=== PATIENT | female | born 1945 | race Caucasian/White ===

== ENCOUNTER 2017-12-27 13:31 | Outpatient (CLI) | payer MEDICARE, OTHER ==
--- NOTE | 2017-12-27 14:01 | ULT ---
LEFT LOWER EXTREMITY VENOUS ULTRASOUND: Comparison: Left leg pain, intermittent. Technique: Multiplanar grayscale and color doppler images were obtained in a left lower extremity roselyn ous ultrasound. Spectral analysis of the doppler waveforms were performed. FINDINGS: The left common femoral vein, profunda femoral vein, superficial femoral vein, and popliteal vein hav e a normal appearance. These vessels demonstrate normal compression, flow, and augmentation. The post erior tibial vein and greater saphenous vein are also patent. IMPRESSION: No evidence of left lower extremity DVT. POS: [facility]
== END 2017-12-27 13:32 | disposition home or self-care (01) ==
LOC: ULT 13:31
PROVIDERS: ATTEND Family Medicine
DX: M79.605 Pain in left leg (principal); R60.0 Localized edema

== ENCOUNTER 2018-04-05 23:10 | Emergency (ER) | payer MEDICARE, OTHER ==
[2018-04-05 23:52] LABS: #Eosinphils 0.1 thou/uL (0.0-0.7); #Lymphocytes 2.1 thou/uL (1.20-3.40); #Monocytes 0.7 thou/uL (0.11-0.59); #Neutrophils 3.3 thou/uL (1.40-6.50); %Basophils 0.7 % (0.0-1.0); %Eosinophils 1.4 % (0.0-10.0); %Lymphocytes 34.1 % (21.0-51.0); %Neutrophils 52.8 % (42.0-75.0); Hemoglobin 14.2 g/dL (12.0-16.0); Mean Corpuscular HGB CONC 33.8 g/dL (32.0-36.0); Mean Corpuscular Hemoglobin 28.6 pg (27.0-31.0); Mean Corpuscular Volume 84.7 fl (81.0-99.0); Mean Platelet Volume 8.4 fL (7.4-10.4); Platelet Count 193 thou/uL (130-400); RBC Distribution Width 12.3 % (11.5-14.5); Red Blood Cell (RBC) Count 4.95 mill/uL (4.20-5.40); White Blood Cell (WBC) Count 6.2 thou/uL (4.8-10.8)
[2018-04-06 00:14] LABS: ALT (SGPT) 18 U/L (8-55); AST (SGOT) 17 U/L (5-34); Albumin 4.3 g/dL (3.4-4.8); Alkaline Phosphatase 84 U/L (40-150); Anion Gap 13 mmol/L (10-20); BUN (Urea Nitrogen) 27 mg/dL (9.8-20.1); Bilirubin, Total 0.5 mg/dL (0.2-1.2); Calc. Creatinine Clearance 0 mL/min (70-130); Calcium 10.1 mg/dL (7.8-10.44); Carbon Dioxide 28 mmol/L (23-31); Chloride 103 mmol/L (98-107); Estimated GFR-MDRD 48; Glucose 113 mg/dL (83-110); Potassium 3.4 mmol/L (3.5-5.1); Protein, Total 7.3 g/dL (6.0-8.3); Sodium 141 mmol/L (136-145)
[2018-04-06 00:56] LABS: CKMB 2.4 ng/mL (0-6.6); Troponin I Less than 0.010 ng/mL (< 0.028)
--- NOTE | 2018-04-06 08:05 | RAD ---
PORTABLE AP CHEST XRAY: DATE: 04/06/18. HISTORY: Right-sided chest pain for 2 hours. COMPARISON: 08/31/13. FINDINGS: Cardiac silhouette and pulmonary vasculature are within normal limits. The lungs are clear. Vascula r calcification of the thoracic aorta. There is right convex curvature of the thoracic spine. There has been no other interval change from the prior exam. IMPRESSION: No acute cardiopulmonary process. POS: [facility]
== END 2018-04-06 01:58 | disposition home or self-care (01) ==
LOC: ERS 23:10
DX: R07.2 Precordial pain (principal); I10 Essential (primary) hypertension; E11.9 Type 2 diabetes mellitus without complications; Z79.84 Long term (current) use of oral hypoglycemic drugs; Z79.899 Other long term (current) drug therapy
CPT/HCPCS: 36415; 71045; 80053; 82553; 84484; 85025; 93005

== ENCOUNTER 2019-03-04 20:13 | Emergency (ER) | payer MEDICARE, OTHER ==
[2019-03-04 21:17] LABS: #Basophils 0.1 thou/uL (0.0-0.2); #Eosinphils 0.1 thou/uL (0.0-0.7); #Lymphocytes 2.8 thou/uL (1.20-3.40); #Monocytes 0.8 thou/uL (0.11-0.59); #Neutrophils 3.6 thou/uL (1.40-6.50); %Basophils 0.8 % (0.0-1.0); %Eosinophils 1.1 % (0.0-10.0); %Lymphocytes 37.8 % (21.0-51.0); %Monocytes 11.4 % (0.0-10.0); Hemoglobin 14.2 g/dL (12.0-16.0); Mean Corpuscular HGB CONC 32.3 g/dL (32.0-36.0); Mean Corpuscular Hemoglobin 28.3 pg (27.0-31.0); Mean Corpuscular Volume 87.4 fL (78.0-98.0); Mean Platelet Volume 8.7 fL (7.4-10.4); Platelet Count 203 thou/uL (130-400); RBC Distribution Width 12.1 % (11.5-14.5); Red Blood Cell (RBC) Count 5.04 mill/uL (4.20-5.40); White Blood Cell (WBC) Count 7.3 thou/uL (4.8-10.8)
[2019-03-04] MEDS ORDERED: Ondansetron PF 4 MG/2 ML Vial ONE (21:32)
[2019-03-04] MEDS ORDERED: Lorazepam 2 MG/ML VIAL ONE (21:32)
[2019-03-04 21:43] LABS: ALT (SGPT) 21 U/L (8-55); AST (SGOT) 32 U/L (5-34); Albumin 4.6 g/dL (3.4-4.8); Alkaline Phosphatase 57 U/L (40-150); Anion Gap 15 mmol/L (10-20); BUN (Urea Nitrogen) 21 mg/dL (9.8-20.1); Bilirubin, Total 1.3 mg/dL (0.2-1.2); Calc. Creatinine Clearance 0 mL/min (70-130); Calcium 10.3 mg/dL (7.8-10.44); Carbon Dioxide 25 mmol/L (23-31); Chloride 101 mmol/L (98-107); Estimated GFR-MDRD 51; Glucose 108 mg/dL (83-110); Lipase 19 U/L (8-78); Potassium 3.1 mmol/L (3.5-5.1); Protein, Total 7.6 g/dL (6.0-8.3); Sodium 138 mmol/L (136-145)
[2019-03-04 21:57] LABS: Bilirubin Negative (Negative); Blood, Urine Negative (Negative); Clarity CLEAR (Clear); Glucose, Urine (Dipstick) Negative (Negative); Leukocyte Trace (Negative); Nitrite Negative (Negative); Protein, Urine (Dipstick) Negative (Neg-Trace); Urobilinogen 0.2 mg/dL (0.2-1.0); pH, Urine 7.5 (5.0-9.0)
[2019-03-04 21:59] LABS: Bacteria/HPF None Seen HPF (None Seen); Hyaline Casts/LPF 0-3 HYALINE CAST LPF (0-3 Hyaline); RBC/HPF 0-3 HPF (0-3); Squamous Epithelial None Seen HPF (0-3); WBC/HPF None Seen HPF (0-3)
[2019-03-04 22:01] LABS: Specific Gravity, Urine 1.004 (1.002-1.036)
== END 2019-03-04 23:54 | disposition home or self-care (01) ==
LOC: ERS 20:13
DX: R10.9 Unspecified abdominal pain (principal); R14.0 Abdominal distension (gaseous); T50.905A Adverse effect of unspecified drugs, medicaments and biological substances, initial encounter; I10 Essential (primary) hypertension; E11.9 Type 2 diabetes mellitus without complications; M81.0 Age-related osteoporosis without current pathological fracture; Z79.899 Other long term (current) drug therapy; Z79.4 Long term (current) use of insulin
CPT/HCPCS: 80053; 81003; 81015; 83690; 85025; J2060; J2405

== ENCOUNTER 2019-03-05 07:44 | Day surgery (SDC) | payer MEDICARE, OTHER ==
[2019-03-01 09:59] VITALS: BMI 25.2
--- NOTE | 2019-03-04 13:54 | HP ---
HISTORY OF PRESENT ILLNESS: This is a 73-year-old female with history of colon polyp with polypectomy more than 5 years ago. The patient also has a history of recurrent diverticulitis over the years. She has had a sigmoid resection by Dr. Ibanez few years ago. The patient done very well until recently. She does have abdominal pain over the left lower quadrant pain. No fevers. No rectal bleeding. The patient underwent colonoscopy because of history of colon polyp. ALLERGIES: LEVAQUIN. SOCIAL HISTORY: The patient does not smoke or drink alcohol. MEDICAL ILLNESS: 1. Diabetes. 2. Hypertension. 3. Hyperlipidemia. 4. Colon polyp. 5. Sleep disorder. 6. Diverticular disease. PHYSICAL EXAMINATION: GENERAL: Appears comfortable. VITAL SIGNS: Pulse is 70, blood pressure is 130/70. HEENT: Conjunctivae clear. CARDIOVASCULAR: First and second heart sounds heard. LUNGS: Clear to auscultation. ABDOMEN: Soft. No organomegaly. No tenderness. No masses. EXTREMITIES: Reveal no edema. ADMITTING DIAGNOSES: 1. Colon polyp. 2. Abdominal pain. 3. Diverticular disease. PLAN: Colonoscopy. Job ID: [id number]
[2019-03-05] MEDS ORDERED: Midazolam HCl 2 mg/2 ml Vial ONE (09:03)
--- NOTE | 2019-03-05 14:49 | OP ---
DATE OF PROCEDURE: 03/05/2019 OPERATIVE PROCEDURE: Colonoscopy. PREOPERATIVE DIAGNOSIS: A 73-year-old female with history of colon polyp. She has no specific gastrointestinal symptoms. She is undergoing followup colonoscopy. POSTOPERATIVE DIAGNOSES: 1. Healthy anastomosis. 2. Mild diverticular disease of the anastomotic area and also the left colon. 3. Hemorrhoids. DESCRIPTION OF PROCEDURE: The patient was placed on her left lateral position and was given sedation by Anesthesia Department. A rectal exam was done before the scope was advanced into the rectum. No lesions felt on rectal exam. A Pentax video colonoscope was introduced into the rectum and advanced all the way to the cecum. The prep is good. The mucosa appears normal throughout the colon with normal vascular pattern. In the appendiceal orifice, ileocecal valve, and cecum, no pathology seen. The patient had occasional diverticula over the ascending colon area. In the transverse colon, splenic flexure, descending colon, no pathology. The sigmoid colon does show presence of scattered diverticula. The anastomotic area appears healthy. The rectum showed hemorrhoids. DISCHARGE PLANNING: This is a 73-year-old female with previous colonoscopy and polypectomy 5 years ago. The patient came for a followup colonoscopy. Colonoscopy showed diverticular disease of the left colon and hemorrhoids. DISCHARGE RECOMMENDATION: 1. High-fiber diet. 2. The patient advised to call me if she develops abdominal pain, hematochezia. 3. To come back to clinic in 2 weeks. Job ID: [id number]
== END 2019-03-05 10:55 | disposition home or self-care (01) ==
LOC: SDC 07:44
PROVIDERS: ATTEND Internal Medicine Gastroenterology
PROC: 0DJD8ZZ Inspection of Lower Intestinal Tract, Via Natural or Artificial Opening Endoscopic (ICD-10-PCS; principal; 2019-03-05)
DX: Z12.11 Encounter for screening for malignant neoplasm of colon (principal); K57.30 Diverticulosis of large intestine without perforation or abscess without bleeding; K64.9 Unspecified hemorrhoids; E11.9 Type 2 diabetes mellitus without complications; I10 Essential (primary) hypertension; E78.5 Hyperlipidemia, unspecified; F43.10 Post-traumatic stress disorder, unspecified; M19.90 Unspecified osteoarthritis, unspecified site; M81.0 Age-related osteoporosis without current pathological fracture; H91.91 Unspecified hearing loss, right ear; Z86.010 Personal history of colon polyps; Z79.2 Long term (current) use of antibiotics; Z79.84 Long term (current) use of oral hypoglycemic drugs; Z79.899 Other long term (current) drug therapy; Z88.1 Allergy status to other antibiotic agents; Z91.011 Allergy to milk products; Z98.0 Intestinal bypass and anastomosis status; Z90.49 Acquired absence of other specified parts of digestive tract
CPT/HCPCS: 80053; 81003; 81015; 83690; 85025; J2060; J2250; J2405

== ENCOUNTER 2019-06-19 12:19 | Outpatient (CLI) | payer MEDICARE, OTHER ==
--- NOTE | 2019-06-19 15:45 | MMO ---
Bilateral MAMMO Bilat Screen [facility]. CLINICAL HISTORY: Patient is 74 years old and is seen for screening. The patient has the following family history of breast cancer: maternal aunt, at age 80 and sister. The patient has no personal history of cancer. VIEWS: The views performed were: bilateral craniocaudal with tomosynthesis and bilateral mediolateral oblique with tomosynthesis. FILMS COMPARED: The present examination has been compared to prior imaging studies performed at [facility] on 05/31/2013, 01/22/2015, 03/09/2016 and 03/08/2017. MAMMOGRAM FINDINGS: There are scattered fibroglandular densities. Benign calcifications are noted bilaterally. There are no suspicious masses, suspicious calcifications, or new areas of architectural distortion. IMPRESSION: THERE IS NO MAMMOGRAPHIC EVIDENCE OF MALIGNANCY. A ROUTINE FOLLOW-UP MAMMOGRAM IN 1 YEAR IS RECOMMENDED. THE RESULTS OF THIS EXAM WERE SENT TO THE PATIENT. ACR BI-RADS Category 2 - Benign finding MAMMOGRAPHY NOTE: 1. A negative mammogram report should not delay a biopsy if a dominant of clinically suspicious mass is present. 2. Approximately 10% to 15% of breast cancers are not detected by mammography. 3. Adenosis and dense breasts may obscure an underlying neoplasm. Reported by: KYLAH FINCH MD Electonically Signed: [id number]
== END 2019-06-19 12:20 | disposition home or self-care (01) ==
LOC: BICMAMMO 12:19
PROVIDERS: ATTEND Family Medicine
DX: Z12.31 Encounter for screening mammogram for malignant neoplasm of breast (principal); Z80.3 Family history of malignant neoplasm of breast
CPT/HCPCS: 77063; 77067

== ENCOUNTER 2019-06-21 09:54 | Outpatient (CLI) | payer MEDICARE, OTHER ==
--- NOTE | 2019-06-21 13:08 | BD ---
DEXA BONE DENSITY STUDY: Date: 06/21/19 HISTORY: Postmenopausal. FINDINGS: Lumbar Spine: BMD (g/cm2) L1 0.730 T-Score: -2.4 L2 0.804 T-Score: -2.0 L3 0.766 T-Score: -2.9 L4 0.783 T-Score: -2.5 Total 0.772 T-Score: -2.5 Left Femoral Neck: 0.579 T-Score: -2.4 Total Femur: 0.773 T-Score: -1.4 IMPRESSION: Osteopenia of left femoral neck. Value borders on osteoporosis range and osteoporosis of the lumbar s pine. POS: [facility]
== END 2019-06-21 09:55 | disposition home or self-care (01) ==
LOC: BICMAMMO 09:54
PROVIDERS: ATTEND Family Medicine
DX: M81.0 Age-related osteoporosis without current pathological fracture (principal); M85.852 Other specified disorders of bone density and structure, left thigh
CPT/HCPCS: 77080

== ENCOUNTER 2020-09-06 13:59 | Emergency (ER) | payer MEDICARE, OTHER | END 2020-09-06 15:50 | disposition home or self-care (01) | LOC: ERS 13:59 | DX: Z53.21 Procedure and treatment not carried out due to patient leaving prior to being seen by health care provider (principal) ==

== ENCOUNTER 2020-09-11 10:02 | Inpatient (IN) | payer MEDICARE, OTHER ==
[2020-09-11 10:58] LABS: #Lymphocytes 0.7 thou/uL (1.20-3.40); #Monocytes 0.4 thou/uL (0.11-0.59); #Neutrophils 4.2 thou/uL (1.40-6.50); %Basophils 0.7 % (0.0-1.0); %Eosinophils 0.2 % (0.0-10.0); %Lymphocytes 12.3 % (21.0-51.0); %Monocytes 7.9 % (0.0-10.0); Hemoglobin 12.5 g/dL (12.0-16.0); Mean Corpuscular HGB CONC 31.8 g/dL (32.0-36.0); Mean Corpuscular Hemoglobin 27.3 pg (27.0-31.0); Mean Corpuscular Volume 85.9 fL (78.0-98.0); Mean Platelet Volume 9.6 fL (7.4-10.4); Platelet Count 169 thou/uL (130-400); RBC Distribution Width 12.4 % (11.5-14.5); Red Blood Cell (RBC) Count 4.56 mill/uL (4.20-5.40); White Blood Cell (WBC) Count 5.3 thou/uL (4.8-10.8)
--- NOTE | 2020-09-11 11:01 | RAD ---
Exam: Chest one view HISTORY:Dyspnea. COVID positive patient. Comparison: 04/05/2018 FINDINGS: Cardiac silhouette: Normal Aorta: Atherosclerotic and elongated Pulmonary vessels: Normal Costophrenic angles: Clear LUNGS: Multifocal interstitial and alveolar opacities. Pneumothorax: None Osseous abnormalities: None IMPRESSION: Multifocal interstitial and alveolar opacities, compatible with patient's history of COVI D pneumonia
[2020-09-11 11:21] LABS: ALT (SGPT) 42 U/L (8-55); AST (SGOT) 54 U/L (5-34); Albumin 3.3 g/dL (3.4-4.8); Alkaline Phosphatase 65 U/L (40-110); Anion Gap 12 mmol/L (10-20); BUN (Urea Nitrogen) 14 mg/dL (9.8-20.1); Bilirubin, Total 0.5 mg/dL (0.2-1.2); Calc. Creatinine Clearance 0 mL/min (70-130); Calcium 8.5 mg/dL (7.8-10.44); Carbon Dioxide 28 mmol/L (23-31); Chloride 102 mmol/L (98-107); Estimated GFR-MDRD 51; Glucose 112 mg/dL (83-110); Potassium 3.5 mmol/L (3.5-5.1); Protein, Total 6.3 g/dL (6.0-8.3); Sodium 138 mmol/L (136-145)
[2020-09-11] MEDS ORDERED: Acetaminophen 325 MG TAB ONE (11:39)
--- NOTE | 2020-09-11 12:01 | PDOC.HHP ---
Hospitalist HPI - History of Present Illness Shortness of breath, fever History of Present Illness: This is a 75-year-old female with a history of hypertension, diabetes, osteoporosis, arthritis who presents today with ongoing and worsening shortness of breath. She and her tested positive for COVID about 10 days ago after the son had tested positive. They were initially asymptomatic however over the past couple of days she has been getting progressively worsening shortness of breath with general malaise. The presented to the ED today for further evaluation. Cough is productive of scanty whitish sputum which is nonbloody. She denies any associated chest pain. She denies any dysuria frequency, abdominal pain or diarrhea, no nausea vomiting. On arrival vitals were BP 166/93, pulse 82, respiratory 24 with temperature 100.4. She was saturating at 94 on room air. Labs showed troponin 0 0.019, no leukocytosis. Chest x-ray showed multifocal interstitial and alveolar opacities compatible with history of COVID. She received 500 mils normal saline and 650 mg acetaminophen in the ED. Hospitalist team was consulted for admission. Hospitalist ROS - Review of Systems Constitutional: reports: fever, weakness. denies: chills, sweats Eyes: denies: pain, vision change Respiratory: reports: cough, shortness of breath, SOB with excertion. denies: hemoptysis Cardiovascular: denies: chest pain, palpitations, orthopnea, paroxysmal noc. dyspnea Genitourinary: denies: dysuria, frequency, incontinence Musculoskeletal: denies: neck pain, shoulder pain, arm pain Neurological: denies: weakness, numbness, incoordination - Medication Medications: Metformin 500 mg daily Cephalexin 500 mg twice daily Atorvastatin 40 mg daily Losartan/HCTZ 50/12.5 daily Allergies: Lactose, levofloxacin Hospitalist History - Past Medical History Cardiac: reports: HTN Endocrine: reports: Diabetes - Past Surgical History Other Surgical History: Tonsillectomy, pituitary tumor removal, - Family History Other Family History: COVID - Social History Smoking Status: Never smoker Alcohol: reports: None Living Situation: With Family - Exam General Appearance: awake alert General - other findings: A little anxious. Mild respiratory distress Eye: PERRL, anicteric sclera ENT: normocephalic atraumatic, no oropharyngeal lesions Neck: no JVD Heart: RRR, no murmur, no gallops, no rubs Respiratory - other findings: Bilateral coarse breath sounds, tachypnea Extremities: no cyanosis, no clubbing, no edema Skin: normal turgor, no lesions Neurological: cranial nerve grossly intact, no weakness Psychiatric: normal affect, A&O x 3 Hospitalist Results - Labs Result Diagrams: 09/11/20 10:30 09/11/20 10:30 Lab results: WBC 5.3 thou/uL (4.8-10.8) 09/11/20 10:30 Hgb 12.5 g/dL (12.0-16.0) 09/11/20 10:30 Hct 39.2 % (36.0-47.0) 09/11/20 10:30 MCV 85.9 fL (78.0-98.0) 09/11/20 10:30 Plt Count 169 thou/uL (130-400) 09/11/20 10:30 Neutrophils % 79.0 % (42.0-75.0) H 09/11/20 10:30 Sodium 138 mmol/L (136-145) 09/11/20 10:30 Potassium 3.5 mmol/L (3.5-5.1) 09/11/20 10:30 Chloride 102 mmol/L (98-107) 09/11/20 10:30 Carbon Dioxide 28 mmol/L (23-31) 09/11/20 10:30 BUN 14 mg/dL (9.8-20.1) 09/11/20 10:30 Creatinine 1.05 mg/dL (0.6-1.1) 09/11/20 10:30 Glucose 112 mg/dL (83-110) H 09/11/20 10:30 Calcium 8.5 mg/dL (7.8-10.44) 09/11/20 10:30 Total Bilirubin 0.5 mg/dL (0.2-1.2) 09/11/20 10:30 AST 54 U/L (5-34) H 09/11/20 10:30 ALT 42 U/L (8-55) 09/11/20 10:30 Alkaline Phosphatase 65 U/L (40-110) 09/11/20 10:30 Troponin I 0.019 ng/mL (< 0.028) 09/11/20 10:30 B-Natriuretic Peptide 91.8 pg/mL (0-100) 09/11/20 10:30 Serum Total Protein 6.3 g/dL (6.0-8.3) 09/11/20 10:30 Albumin 3.3 g/dL (3.4-4.8) L 09/11/20 10:30 Hospitalist H&P A/P - Plan Plan: This is a 75-year-old female patient with a history of diabetes mellitus, hyper tension presenting with 10-day history of incomplete positive with worsening respiratory distress and fever. COVID pneumonia Relatively mild symptomsadmit for observation Start steroidsdexamethasone Order d-dimer, ferritin and CRP Consult ID before decision on further management. Observe overnight. Hypertension Blood pressure fair Resume blood pressure home medications when verified. Diabetes mellitus Correctional dosing insulin. Monitor blood sugar VTE prophylaxisSCDs CODE STATUSfull code
[2020-09-11] MEDS ORDERED: HumaLOG 300 UNITS/3 ML VIAL SC PRN (12:30)
[2020-09-11] MEDS ORDERED: Dextrose 50% Abboject 50 ML SYRINGE SLOW IVP PRN (12:30)
[2020-09-11] MEDS ORDERED: Dextrose 5% in Water 1,000 ML IV PRN (12:30)
[2020-09-11] MEDS ORDERED: Dexamethasone 10 MG in Sodium Chloride 0.9% 50 ML IVPB SCH (13:00)
[2020-09-11 14:51] VITALS: BMI 24.3
[2020-09-11] MEDS: Enoxaparin Sodium 40 MG/0.4 ML SYRINGE SC SCH (20:39)
--- NOTE | 2020-09-12 00:16 | CON ---
DATE OF CONSULTATION: 09/11/2020 REASON FOR CONSULT: COVID infection. HISTORY OF PRESENT ILLNESS: A 75-year-old who has a history of type 2 diabetes and hypertension and diverticulitis, recurrent with a sigmoid resection by Dr. Ibanez a few years before, who contacted COVID or SARS-CoV-2 infection about 12 days ago. She came to the emergency room once on September 09 and was released. Her apparently is still at home and doing well, although he still has a cough, but she started to having issues with her dyspnea, being uncomfortable and persistence of cough, some chest discomfort, so she was admitted. On arrival, her BP 160/90, pulse 82, respirations 24, temperature 100.4, O2 saturations were 94 on room air. She had some wheezing noted on the lung exam. The heart exam was normal. The abdomen was soft and she was started on Decadron, O2 supplementation, and enoxaparin. Currently, she is still coughing intermittently. She is not wearing an O2 nasal cannula, apparently was discontinued recently. She is feeling moderately dyspneic. No headaches. No visual symptoms. No chest pain. No abdominal pain or diarrhea. No genitourinary symptoms. No joint symptoms. PAST MEDICAL HISTORY: Type 2 diabetes, hypertension, osteoporosis, degenerative joint disease, diverticulitis with segmental colon resection, pituitary tumor removal, tonsillectomy. SOCIAL HISTORY: Never smoker, , [place] in the area. ALLERGIES: LACTOSE AND LEVOFLOXACIN. MEDICATIONS: Had been on: 1. Clonazepam. 2. Metformin. 3. Atorvastatin. 4. Losartan. 5. Zofran. PHYSICAL EXAMINATION: VITAL SIGNS: Temperature 99.3, BP 140/80. She was saturating at 90 on room air, so I restarted nasal cannula. She went up to 91 with 2 L and 96 with 3 L. SKIN: Normal. No lymphadenopathy. HEENT: She has significant hearing impairment with bilateral hearing aids. Pupils are equal. Oral cavity with quite a few teeth in place, fairly decent shape. NECK: Supple. Jugular vein distention. LUNGS: Symmetric air entry with a few crackles scattered in right and left lung campos. HEART: S1, S2. Regular rate. No S3 or S4. ABDOMEN: Soft, not distended, or tender. No ascites. No bladder distention. EXTREMITIES: No joint inflammatory activity. No edema. Pulses 1+ in dorsalis pedis. Plantar responses are flexor. She moves all extremities equally. NEURO: Cognitive function; she is awake, oriented, follows commands. She has a little speech impairment, probably related to her chronic hearing impairment. LABORATORY DATA: White cell count 5.3, hemoglobin 12.5, platelets 169. D-dimer 0.88. Creatinine 1.05. Ferritin 512, AST 54. CRP was 8.05. Albumin 3.3. Chest x-ray, bilateral diffuse pulmonary infiltrates. ASSESSMENT: Type 2 diabetes, hypertension, and moderate to severe coronavirus disease pneumonia. She is not eligible for remdesivir, but we will give her convalescent plasma. Continue Decadron and has prescribed upgrade enoxaparin to b.i.d. She is going to the beginning of the 3rd week of her illness and she is going into a more inflammatory phase of her illness, which is quite concerning and there is a significant risk of further deterioration, requirement of higher levels of oxygen supplementation and hopefully she will turn around with the Decadron. Job ID: [id number]
[2020-09-12 05:50] LABS: Anion Gap 15 mmol/L (10-20); BUN (Urea Nitrogen) 14 mg/dL (9.8-20.1); Calc. Creatinine Clearance 56 mL/min (70-130); Calcium 8.6 mg/dL (7.8-10.44); Carbon Dioxide 26 mmol/L (23-31); Chloride 101 mmol/L (98-107); Estimated GFR-MDRD 69; Glucose 88 mg/dL (83-110); Potassium 3.5 mmol/L (3.5-5.1); Sodium 138 mmol/L (136-145)
[2020-09-12 05:56] LABS: Band 1 % (5-11); Elliptocytes SLIGHT = 2-5 cells (100X) (0-1/hpf); Hemoglobin 13.3 g/dL (12.0-16.0); Lymphocytes 13 % (21-51); MDiff Complete? YES; Mean Corpuscular HGB CONC 32.7 g/dL (32.0-36.0); Mean Corpuscular Volume 85.4 fL (78.0-98.0); Mean Platelet Volume 9.6 fL (7.4-10.4); Monocytes 8 % (0-10); Neutrophil 78 % (42-75); Platelet Count 198 thou/uL (130-400); Platelet Morphology Comment Appears Decreased; RBC Distribution Width 12.3 % (11.5-14.5); Red Blood Cell (RBC) Count 4.76 mill/uL (4.20-5.40); White Blood Cell (WBC) Count 4.6 thou/uL (4.8-10.8)
[2020-09-12] MEDS: Enoxaparin Sodium 40 MG/0.4 ML SYRINGE SC SCH ×2 (08:11→19:53)
[2020-09-12] MEDS: Acetaminophen 325 MG TAB PO PRN ×2 (08:11→21:48)
[2020-09-12] MEDS ORDERED: Enoxaparin Sodium 40 MG/0.4 ML SYRINGE SC SCH (09:00)
--- NOTE | 2020-09-12 09:50 | PDOC.HOSPP ---
- Subjective Encounter Date: 09/12/20 Encounter Time: 09:46 Subjective: No overnight events. Ms. Saenz reports that her shortness of breath feels stable since admission. Denies dyspnea on 2 L of oxygen nasal cannula. Denies chest pain, palpitations. Denies nausea, vomiting, diarrhea. Endorses mild cough. Denies fever, night sweats, chills. Patient seen and examined at bedside. Chart and medications reviewed. - Objective Vital Signs & Weight: Vital Signs (12 hours) Temp Pulse Resp BP Pulse Ox 09/12/20 08:23 99.5 F 87 18 167/88 H 94 L 09/12/20 04:25 99.9 F H 85 16 153/86 H 92 L 09/12/20 00:25 101.1 F H 75 16 166/80 H 95 09/11/20 21:50 100.3 F H 69 24 H 136/68 96 Weight Weight 133 lb I&O: 09/11/20 09/12/20 09/13/20 06:59 06:59 06:59 Intake Total 600 Output Total 1250 Balance -650 Result Diagrams: 09/12/20 04:47 09/12/20 04:47 Additional Labs: Accuchecks 09/11/20 20:51 POC Glucose 104 H Hospitalist ROS - Review of Systems Constitutional: reports: malaise. denies: fever, chills, sweats Eyes: denies: vision change Respiratory: reports: cough, shortness of breath Cardiovascular: denies: chest pain, palpitations, orthopnea, light headedness Gastrointestinal: denies: nausea, vomiting, abdominal pain, diarrhea Genitourinary: denies: dysuria Skin: denies: rash, lesions Neurological: denies: weakness, numbness - Medication Medications: Active Medications Generic Name Dose Route Start Last Admin Trade Name Freq PRN Reason Stop Dose Admin Acetaminophen 650 mg 09/11/20 16:37 09/12/20 08:11 Acetaminophen 325 Mg Tab PO 650 mg Q6H PRN Administration Headache/Fever or Pain Enoxaparin Sodium 40 mg 09/11/20 21:00 09/12/20 08:11 Enoxaparin Sodium 40 Mg/0.4 Ml Syringe SC 40 mg BID TRICIA Administration Dexamethasone 10 mg/ Sodium 51 mls @ 100 mls/hr 09/11/20 13:00 09/11/20 14:57 Chloride IVPB Not Given 1300 TRICIA - Exam General Appearance: NAD, awake alert Eye: negative: anicteric sclera ENT: negative: normocephalic atraumatic, no oropharyngeal lesions Neck: supple, symmetric, no JVD, no thyromegaly, no lymphadenopathy, no carotid bruit Heart: RRR, no murmur, no gallops, no rubs, normal peripheral pulses Respiratory: CTAB, no wheezes, no rales, no ronchi, normal chest expansion, no tachypnea, normal percussion Gastrointestinal: soft, non-tender, non-distended, normal bowel sounds, no palpable masses, no hepatomegaly, no splenomegaly, no bruit Extremities: no cyanosis, no clubbing, no edema Skin: normal turgor, no lesions, no rashes Neurological: normal sensation to touch, no weakness, no focal deficits, no new deficit Musculoskeletal: normal tone, normal strength, no muscle wasting Psychiatric: normal affect, normal behavior, A&O x 3 Hosp A/P - Plan This is a 75-year-old female patient with a history of diabetes mellitus, hypertension presenting with 10-day history of being COVID positive with worsening respiratory distress and fever. COVID pneumonia 75-year-old female history of diabetes, hypertension who presented to the ED for worsening shortness of breath and fever. Patient reports becoming positive of COVID approximately 10 days prior to admission. Other family members are also COVID positive. Patient started on dexamethasone. Initial d-dimer 0.88, ferritin 512.85, CRP 8.05. WBC 5.3 with lymphocytopenia. Chest x-ray showed multifocal interstitial and alveolar opacities compatible with patient's history of COVID pneumonia. Patient has been on 2 L nasal cannula since arriving to the ED. She is saturating at 94% on 2 L with no signs of respiratory distress. Dr. Felder of [place] consulted who recommended convalescent plasma, and continuation of dexamethasone. Per Dr. Felder patient is not a candidate for Remdesivir. Dr. Felder is also recommended increasing patient's DVT prophylaxis to Lovenox twice daily. Plan Continue dexamethasone Trend d-dimer, ferritin, CRP as appropriate Dr. Felder of [place] following, recommendations appreciated Continuous pulse ox monitoring Airborne precautions Hypertension Continue home losartan/hydrochlorothiazide. Type 2 diabetes mellitus History of type 2 diabetes on metformin. Will monitor sugars and use ISS during admission. BUN/CR 14/0.81. Plan ACHS glucose checks ISS -Hyperglycemia protocol prn DVT prophylaxis: Lovenox BID CODE STATUSfull code
[2020-09-12] MEDS: Dexamethasone 10 MG in Sodium Chloride 0.9% 50 ML IVPB SCH (13:16)
--- NOTE | 2020-09-12 14:08 | EKG ---
Test Reason : Blood Pressure : / mmHG Vent. Rate : 075 BPM Atrial Rate : 075 BPM P-R Int : 146 ms QRS Dur : 090 ms QT Int : 388 ms P-R-T Axes : 008 -03 019 degrees QTc Int : 433 ms Normal sinus rhythm Possible Left atrial enlargement Borderline ECG Confirmed by JOHN REYES [id number]), editor managing director ROYAL PEREZ ([id number] on 09/12/2020 2:08:39 PM Referred By: Confirmed By:JOHN Jolly
[2020-09-12] MEDS ORDERED: Magnesium 2 GM/50 ML 2 GM in Premix Bag 1 BAG IVPB SCH (16:00)
[2020-09-12 17:03] LABS: #Lymphocytes 0.4 thou/uL (1.20-3.40); #Monocytes 0.3 thou/uL (0.11-0.59); #Neutrophils 4.7 thou/uL (1.40-6.50); %Basophils 0.2 % (0.0-1.0); %Monocytes 5.3 % (0.0-10.0); %Neutrophils 86.5 % (42.0-75.0); Hemoglobin 13.4 g/dL (12.0-16.0); Mean Corpuscular HGB CONC 34.2 g/dL (32.0-36.0); Mean Corpuscular Hemoglobin 28.9 pg (27.0-31.0); Mean Corpuscular Volume 84.4 fL (78.0-98.0); Mean Platelet Volume 8.9 fL (7.4-10.4); Platelet Count 212 thou/uL (130-400); RBC Distribution Width 12.3 % (11.5-14.5); Red Blood Cell (RBC) Count 4.62 mill/uL (4.20-5.40); White Blood Cell (WBC) Count 5.4 thou/uL (4.8-10.8)
[2020-09-12] MEDS: Atorvastatin Calcium 40 MG TAB PO SCH (19:53)
[2020-09-12] MEDS ORDERED: HumaLOG 300 UNITS/3 ML VIAL SC PRN (20:43)
[2020-09-13 05:56] LABS: Anion Gap 13 mmol/L (10-20); BUN (Urea Nitrogen) 19 mg/dL (9.8-20.1); Calc. Creatinine Clearance 55 mL/min (70-130); Calcium 8.3 mg/dL (7.8-10.44); Carbon Dioxide 28 mmol/L (23-31); Chloride 104 mmol/L (98-107); Estimated GFR-MDRD 67; Glucose 142 mg/dL (83-110); Potassium 3.6 mmol/L (3.5-5.1); Sodium 141 mmol/L (136-145)
[2020-09-13 06:21] LABS: Band 1 % (5-11); Elliptocytes SLIGHT = 2-5 cells (100X) (0-1/hpf); Hemoglobin 13.1 g/dL (12.0-16.0); Lymphocytes 11 % (21-51); MDiff Complete? YES; Mean Corpuscular HGB CONC 32.4 g/dL (32.0-36.0); Mean Corpuscular Hemoglobin 27.7 pg (27.0-31.0); Mean Corpuscular Volume 85.4 fL (78.0-98.0); Mean Platelet Volume 8.8 fL (7.4-10.4); Monocytes 11 % (0-10); Neutrophil 77 % (42-75); Platelet Count 241 thou/uL (130-400); Platelet Morphology Comment Appears Adequate; RBC Distribution Width 12.4 % (11.5-14.5); Red Blood Cell (RBC) Count 4.73 mill/uL (4.20-5.40); White Blood Cell (WBC) Count 3.6 thou/uL (4.8-10.8)
[2020-09-13] MEDS: Enoxaparin Sodium 40 MG/0.4 ML SYRINGE SC SCH ×2 (09:44→20:36)
[2020-09-13] MEDS: Dexamethasone 10 MG in Sodium Chloride 0.9% 50 ML IVPB SCH (13:09)
--- NOTE | 2020-09-13 14:24 | PDOC.EVN ---
Event Note - Event Note Event Note: Chart reviewed and care discussed with DINESH Kim - because of COVID pneumonia, I did not personally evaluate the patient. Pt admitted for COVID pneumonia - is currently on steroids and has received convalescent plasma. Inflammatory markers are improving. Mild leukopenia today likely from the virus. Blood pressures mildly elevated and blood sugars controlled. Current dx: COVID pneumonia acute respiratory failure with hypoxia secondary to above leukopenia, mild and likely secondary to above DM controlled HTN - not optimally controlled dyslipidemia Plan - continue steroids, wean oxygen
[2020-09-13] MEDS: Atorvastatin Calcium 40 MG TAB PO SCH (20:36)
[2020-09-14 05:17] LABS: #Lymphocytes 0.8 thou/uL (1.20-3.40); #Monocytes 0.9 thou/uL (0.11-0.59); #Neutrophils 6.3 thou/uL (1.40-6.50); %Basophils 0.1 % (0.0-1.0); %Eosinophils 0.1 % (0.0-10.0); %Lymphocytes 9.7 % (21.0-51.0); %Monocytes 11.1 % (0.0-10.0); %Neutrophils 78.9 % (42.0-75.0); Mean Corpuscular HGB CONC 33.1 g/dL (32.0-36.0); Mean Corpuscular Hemoglobin 28.1 pg (27.0-31.0); Mean Corpuscular Volume 84.7 fL (78.0-98.0); Mean Platelet Volume 9.1 fL (7.4-10.4); Platelet Count 292 thou/uL (130-400); RBC Distribution Width 12.2 % (11.5-14.5); Red Blood Cell (RBC) Count 4.62 mill/uL (4.20-5.40)
[2020-09-14 05:29] LABS: Anion Gap 14 mmol/L (10-20); BUN (Urea Nitrogen) 21 mg/dL (9.8-20.1); Calc. Creatinine Clearance 54 mL/min (70-130); Calcium 8.2 mg/dL (7.8-10.44); Carbon Dioxide 26 mmol/L (23-31); Chloride 102 mmol/L (98-107); Estimated GFR-MDRD 66; Glucose 137 mg/dL (83-110); Potassium 3.6 mmol/L (3.5-5.1); Sodium 138 mmol/L (136-145)
[2020-09-14] MEDS: Enoxaparin Sodium 40 MG/0.4 ML SYRINGE SC SCH (07:42)
[2020-09-14] MEDS: Dexamethasone 10 MG in Sodium Chloride 0.9% 50 ML IVPB SCH (13:27)
--- NOTE | 2020-09-14 14:37 | PDOC.HOSPP ---
- Subjective Encounter Date: 09/14/20 Encounter Time: 14:15 Subjective: Patient remained afebrile overnight with no overnight events. Patient states she is feeling great today. She states she has been up to the restroom without her oxygen and has done well. Patient also states that the prune juice she had earlier has helped her successfully have a bowel movement. Denies chest pain, abdominal pain, palpitations, nausea. - Objective Vital Signs & Weight: Vital Signs (12 hours) Temp Pulse Resp BP Pulse Ox 09/14/20 11:42 99.3 F 86 18 157/88 H 95 09/14/20 07:49 99.1 F 77 20 165/91 H 94 L 09/14/20 05:10 99.2 F 83 20 152/82 H 94 L Weight Weight 133 lb Most Recent Monitor Data Heart Rate from ECG 93 I&O: 09/13/20 09/14/20 09/15/20 06:59 06:59 06:59 Intake Total 1460 868 Output Total 600 1200 350 Balance 860 -332 -350 Result Diagrams: 09/14/20 04:36 09/14/20 04:36 Additional Labs: Accuchecks 09/13/20 09/13/20 20:47 17:15 POC Glucose 156 H 174 H Hospitalist ROS - Medication Medications: Active Medications Generic Name Dose Route Start Last Admin Trade Name Freq PRN Reason Stop Dose Admin Acetaminophen 650 mg 09/11/20 16:37 09/12/20 21:48 Acetaminophen 325 Mg Tab PO 650 mg Q6H PRN Administration Headache/Fever or Pain Atorvastatin Calcium 40 mg 09/12/20 21:00 09/13/20 20:36 Atorvastatin Calcium 40 Mg Tab PO 40 mg HS TRICIA Administration Enoxaparin Sodium 40 mg 09/11/20 21:00 09/14/20 07:42 Enoxaparin Sodium 40 Mg/0.4 Ml Syringe SC 40 mg BID TRICIA Administration HCTZ/Losartan Potassium 1 tab 09/13/20 09:00 09/14/20 07:41 Losartan/Hydrochlorothiazide 50 Mg/12.5 Mg Tablet PO 1 tab DAILY TRICIA Administration Dexamethasone 10 mg/ Sodium 51 mls @ 100 mls/hr 09/12/20 14:00 09/14/20 13:27 Chloride IVPB 51 mls 1400 TRICIA Administration Insulin Human Lispro 0 units 09/11/20 12:30 09/13/20 18:03 Humalog 300 Units/3 Ml Vial SC 2 unit .MILD SLIDING SCALE PRN Administration Mild Correctional Scale Insulin Human Lispro 0 units 09/12/20 20:43 09/12/20 21:46 Humalog 300 Units/3 Ml Vial SC 2 unit .BEDTIME SLIDING SC PRN Administration Bedtime Correctional Scale - Exam General Appearance: NAD, awake alert Neck: supple Heart: RRR, no murmur, no gallops, no rubs, normal peripheral pulses Respiratory: CTAB, no wheezes, no rales, normal chest expansion Gastrointestinal: soft, non-tender, non-distended, normal bowel sounds Extremities: no cyanosis Psychiatric: A&O x 3 Hosp A/P - Plan COVID pneumonia Currently on 1L O2, has been removing oxygen to ambulate around room without difficulty Currently on dexamethasone Received dose of convalescent plasma Airborne precautions States she feels well enough to go home Room air O2 trial today D-dimer, ferritin and CRP continue to trend downward HTN Continue home medications Type 2 diabetes mellitus ACHS glucose checks
[2020-09-14 15:43] VITALS: BP 173/86; TEMP 99.6
--- NOTE | 2020-09-14 16:07 | PDOC.EVN ---
Event Note - Event Note Event Note: Pt evaluated and discussed with DAVID Cadena. Pt overall feeling well, states she is ready to go home. She denies any difficulty with ambulation. She denies any chest pain or other problems. VS reviewed - bp's mildly elevated gen - awake, alert, responsive Lungs - good air movement, no audible w/r/r heart - no audible murmurs abd - soft, nt/nd ext - no edema Labs reviewed - inflammatory markers all downtrending and wbc is normal Imp - covid pneumonia improved acute resp failure with hypoxia - resolved dm type 2 htn Plan - discharge complete 10 days of dexamethasone f/u with PCP return precautions discussed with patients no questions or further needs at end of eval.
--- NOTE | 2020-09-14 19:37 | DIS ---
DATE OF ADMISSION: 09/12/2020 DATE OF DISCHARGE: 09/14/2020 DISPOSITION: The patient discharged home. The patient was seen and examined on day of discharge. Denies any new complaints. INPATIENT CONSULT: Infectious Disease. CLINICAL COURSE: The patient is a 75-year-old female with past medical history of hypertension, diabetes, osteoporosis, arthritis, who presented with ongoing worsening shortness of breath. She tested positive for COVID approximately 10 days prior to being admitted to hospital. Initially, she was asymptomatic, but over the past days prior to admission, she had progressively worsening shortness of breath which normalized. She was admitted to the COVID unit, and Infectious Disease was consulted. She was started on dexamethasone 10 mg IV and received a dose of convalescent plasma. Upon day of discharge, she was feeling "great" and was on room air and able to ambulate in the room without getting extremely short of breath. FINAL DIAGNOSES: Pneumonia, hypertension, diabetes type 2. DISCHARGE MEDICATIONS: The patient to continue home medications with a new prescription for dexamethasone 6 mg daily for 7 additional days. DISCHARGE INSTRUCTIONS: The patient was instructed over quarantining self and how to protect others. She was also instructed to return to the ER if she became short of breath again or felt symptomatic. TIME SPENT: Total time coordinating discharging the patient was 25 minutes. The patient was discussed with Dr. Krishna and evaluated by Dr. Krishna before discharge. Job ID: [id number]
== END 2020-09-14 18:23 | disposition home or self-care (01) | DRG 177 ==
LOC: ERS 10:02 → 2SW 11:36 → OBSVTOIN 09-12 10:46
PROVIDERS: ADMIT Student in an Organized Health Care Education/Training Program; ATTEND Student in an Organized Health Care Education/Training Program
PROC: XW13325 Transfusion of Convalescent Plasma (Nonautologous) into Peripheral Vein, Percutaneous Approach, New Technology Group 5 (ICD-10-PCS; principal; 2020-09-12)
PROC: 8E0ZXY6 Isolation (ICD-10-PCS; 2020-09-12)
DX: U07.1 COVID-19 (principal); J12.89 Other viral pneumonia; J96.01 Acute respiratory failure with hypoxia; I10 Essential (primary) hypertension; E11.9 Type 2 diabetes mellitus without complications; M81.0 Age-related osteoporosis without current pathological fracture; M19.90 Unspecified osteoarthritis, unspecified site; E78.5 Hyperlipidemia, unspecified; Z79.84 Long term (current) use of oral hypoglycemic drugs; Z79.899 Other long term (current) drug therapy; Z88.1 Allergy status to other antibiotic agents; Z91.011 Allergy to milk products; Z90.49 Acquired absence of other specified parts of digestive tract
CPT/HCPCS: 36415; 36416; 36430; 71045; 80048; 80053; 82728; 83735; 83880; 84484; 85007; 85025; 85027; 85379; 86140; 86850; 86900; 86901; 93005; 96372; G0378; J1100; J1650; J3475; P9017

== ENCOUNTER 2021-02-03 08:20 | Outpatient (CLI) | payer MEDICARE | END 2021-02-03 08:21 | disposition home or self-care (01) | LOC: BICMAMMO 08:20 | PROVIDERS: ATTEND Family Medicine | DX: Z12.31 Encounter for screening mammogram for malignant neoplasm of breast (principal); Z80.3 Family history of malignant neoplasm of breast | CPT/HCPCS: 77063; 77067 ==

== ENCOUNTER 2022-09-09 10:18 | Outpatient (CLI) | payer MEDICARE ==
[2022-09-09 11:47] LABS: #Eosinphils 0.1 10x3/uL (0.0-0.5); #Monocytes 0.6 10x3/uL (0.0-1.1); #Neutrophils 3.4 10x3/uL (1.5-8.4); %Basophils 0.7 % (0.0-2.0); %Lymphocytes 30.6 % (18.0-47.0); %Monocytes 9.3 % (0.0-10.0); %Neutrophils 57.1 % (40.0-75.0); Mean Corpuscular HGB CONC 33.2 g/dL (32.0-36.0); Mean Corpuscular Hemoglobin 28.1 pg (27.0-33.0); Mean Corpuscular Volume 84.6 fl (81.6-98.3); Mean Platelet Volume 11.6 fl (7.4-10.4); Platelet Count 183 10x3/uL (150-450); RBC Distribution Width 14.2 % (11.5-14.5); Red Blood Cell (RBC) Count 4.62 10x6/uL (3.90-5.03)
[2022-09-09 11:49] LABS: Anion Gap 14 mmol/L (10-20); BUN (Urea Nitrogen) 26 mg/dL (9.8-20.1); Calc. Creatinine Clearance 0 mL/min (70-130); Calcium 9.8 mg/dL (7.8-10.44); Carbon Dioxide 26 mmol/L (23-31); Chloride 103 mmol/L (98-107); Estimated GFR 61; Glucose 90 mg/dL (83-110); Potassium 3.9 mmol/L (3.5-5.1); Sodium 139 mmol/L (136-145)
== END 2022-09-09 10:19 | disposition home or self-care (01) ==
LOC: LABBT 10:18
PROVIDERS: ATTEND Orthopaedic Surgery Hand Surgery
DX: Z01.818 Encounter for other preprocedural examination (principal); G56.01 Carpal tunnel syndrome, right upper limb; M65.331 Trigger finger, right middle finger; M65.341 Trigger finger, right ring finger; M65.321 Trigger finger, right index finger
CPT/HCPCS: 80048; 85025; 93005; 93010

== ENCOUNTER 2022-09-13 06:25 | Day surgery (SDC) | payer MEDICARE ==
[2022-09-09 14:05] VITALS: BMI 22.6
[2022-09-13] MEDS ORDERED: Neomycin-Polymyxin 1 ML AMP ONE (07:39)
[2022-09-13] MEDS ORDERED: Bupivacaine PF 0.5% 30 ML VIAL ONE (07:39)
[2022-09-13] MEDS ORDERED: Bacitracin Zinc Ointment 30 gm TUBE ONE (07:39)
[2022-09-13] MEDS ORDERED: Betamet Acet/Betamet Na Ph 30 MG/5 ML VIAL ONE (07:39)
[2022-09-13] MEDS ORDERED: fentaNYL Citrate/PF 100 MCG/2 ML SYRINGE ONE (07:44)
[2022-09-13] MEDS ORDERED: CEFAZOLIN 2 GM VIAL ONE (08:05)
[2022-09-13] MEDS ORDERED: Sodium Chloride 0.9% 100 ML ONE (08:05)
[2022-09-13] MEDS ORDERED: Ondansetron PF 4 MG/2 ML Vial ONE (08:20)
[2022-09-13] MEDS ORDERED: Dexamethasone 20 MG/5 ML VIAL ONE (08:20)
[2022-09-13] MEDS ORDERED: PROPOFOL 200 MG/20 ML VIAL ONE (08:20)
[2022-09-13] MEDS ORDERED: Ketorolac Tromethamine 30 MG/ML VIAL ONE (09:21)
== END 2022-09-13 11:20 | disposition home or self-care (01) ==
LOC: SDC 06:25
PROVIDERS: ATTEND Orthopaedic Surgery Hand Surgery
PROC: 0LN70ZZ Release Right Hand Tendon, Open Approach (ICD-10-PCS; principal; 2022-09-13)
PROC: 0LN70ZZ Release Right Hand Tendon, Open Approach (ICD-10-PCS; 2022-09-13)
PROC: 0LN70ZZ Release Right Hand Tendon, Open Approach (ICD-10-PCS; 2022-09-13)
PROC: 01N50ZZ Release Median Nerve, Open Approach (ICD-10-PCS; 2022-09-13)
DX: G56.03 Carpal tunnel syndrome, bilateral upper limbs (principal); M65.321 Trigger finger, right index finger; M65.331 Trigger finger, right middle finger; M65.341 Trigger finger, right ring finger; M65.332 Trigger finger, left middle finger; M65.342 Trigger finger, left ring finger; M18.0 Bilateral primary osteoarthritis of first carpometacarpal joints; I10 Essential (primary) hypertension; E78.5 Hyperlipidemia, unspecified; E11.9 Type 2 diabetes mellitus without complications; M81.0 Age-related osteoporosis without current pathological fracture; H91.91 Unspecified hearing loss, right ear; Z86.16 Personal history of COVID-19; Z79.1 Long term (current) use of non-steroidal anti-inflammatories (NSAID); Z79.84 Long term (current) use of oral hypoglycemic drugs; Z79.899 Other long term (current) drug therapy; Z88.1 Allergy status to other antibiotic agents; Z91.011 Allergy to milk products
CPT/HCPCS: J0690; J0702; J1885; J3490; S0020

== ENCOUNTER 2023-01-27 12:10 | Outpatient (CLI) | payer OTHER | END 2023-01-27 12:11 | disposition home or self-care (01) | LOC: BICMAMMO 12:10 | PROVIDERS: ATTEND Family Medicine | DX: Z12.31 Encounter for screening mammogram for malignant neoplasm of breast (principal); Z80.3 Family history of malignant neoplasm of breast | CPT/HCPCS: 77063; 77067 ==

== ENCOUNTER 2023-06-26 08:51 | Outpatient (CLI) | payer OTHER | END 2023-06-26 08:52 | disposition home or self-care (01) | LOC: BICMAMMO 08:51 | PROVIDERS: ATTEND Family Medicine | DX: M81.0 Age-related osteoporosis without current pathological fracture (principal) | CPT/HCPCS: 77080 ==

== ENCOUNTER 2023-09-11 17:35 | Emergency (ER) | payer OTHER ==
[~2023-09-11 17:35] MED LIST: Iopamidol-370 76% 500 ML MDV (1 ML CHARGE) ONE
[2023-09-11 18:16] LABS: #Eosinphils 0.1 thou/uL (0.0-0.7); #Monocytes 0.7 thou/uL (0.11-0.59); #Neutrophils 3.9 thou/uL (1.40-6.50); %Basophils 0.5 % (0.0-1.0); %Eosinophils 1.6 % (0.0-10.0); %Monocytes 9.5 % (0.0-10.0); %Neutrophils 51.4 % (42.0-75.0); Hematocrit 37.6 % (36.0-47.0); Hemoglobin 12.2 g/dL (12.0-16.0); Mean Corpuscular HGB CONC 32.4 g/dL (32.0-36.0); Mean Corpuscular Hemoglobin 28.1 pg (27.0-31.0); Mean Corpuscular Volume 86.6 fl (78.0-98.0); Mean Platelet Volume 11.7 fL (7.4-10.4); Platelet Count 182 10x3/uL (130-400); Red Blood Cell (RBC) Count 4.34 mill/uL (4.20-5.40); White Blood Cell (WBC) Count 7.5 10x3/uL (4.8-10.8)
[2023-09-11 18:44] LABS: ALT (SGPT) 16 U/L (8-55); AST (SGOT) 26 U/L (5-34); Albumin 4.2 g/dL (3.4-4.8); Alkaline Phosphatase 74 U/L (40-110); Anion Gap 17 mmol/L (10-20); BUN (Urea Nitrogen) 36 mg/dL (9.8-20.1); Bilirubin, Total 0.4 mg/dL (0.2-1.2); Calc. Creatinine Clearance 0 mL/min (70-130); Calcium 9.5 mg/dL (7.8-10.44); Carbon Dioxide 22 mmol/L (23-31); Chloride 104 mmol/L (98-107); Estimated GFR 40; Globulin 2.3 g/dL (2.4-3.5); Glucose 165 mg/dL (83-110); Lipase 31 U/L (8-78); Potassium 4.2 mmol/L (3.5-5.1); Protein, Total 6.5 g/dL (5.8-8.1); Sodium 139 mmol/L (136-145)
== END 2023-09-11 21:12 | disposition home or self-care (01) ==
LOC: ERS 17:35
DX: K92.1 Melena (principal); K59.00 Constipation, unspecified; I31.39 Other pericardial effusion (noninflammatory); I10 Essential (primary) hypertension; E11.9 Type 2 diabetes mellitus without complications; Z79.4 Long term (current) use of insulin; Z79.84 Long term (current) use of oral hypoglycemic drugs; Z79.899 Other long term (current) drug therapy
CPT/HCPCS: 74177; 80053; 82274; 83690; 85025; 86850; 86900; 86901; 93005; Q9967

== ENCOUNTER 2023-09-14 10:10 | Observation (INO) | payer OTHER ==
[2023-09-14 11:07] LABS: #Monocytes 0.5 thou/uL (0.11-0.59); #Neutrophils 4.3 thou/uL (1.40-6.50); %Basophils 0.5 % (0.0-1.0); %Eosinophils 0.5 % (0.0-10.0); %Lymphocytes 19.9 % (21.0-51.0); %Monocytes 8.1 % (0.0-10.0); %Neutrophils 70.8 % (42.0-75.0); Hematocrit 25.8 % (36.0-47.0); Hemoglobin 8.6 g/dL (12.0-16.0); Mean Corpuscular HGB CONC 33.3 g/dL (32.0-36.0); Mean Corpuscular Hemoglobin 28.6 pg (27.0-31.0); Mean Corpuscular Volume 85.7 fl (78.0-98.0); Mean Platelet Volume 11.5 fL (7.4-10.4); Platelet Count 153 10x3/uL (130-400); RBC Distribution Width 14.1 % (11.5-14.5); Red Blood Cell (RBC) Count 3.01 mill/uL (4.20-5.40)
[2023-09-14 11:34] LABS: ALT (SGPT) 18 U/L (8-55); AST (SGOT) 21 U/L (5-34); Albumin 4.1 g/dL (3.4-4.8); Alkaline Phosphatase 58 U/L (40-110); Anion Gap 17 mmol/L (10-20); BUN (Urea Nitrogen) 38 mg/dL (9.8-20.1); Bilirubin, Total 0.8 mg/dL (0.2-1.2); Calc. Creatinine Clearance 0 mL/min (70-130); Calcium 9.2 mg/dL (7.8-10.44); Carbon Dioxide 22 mmol/L (23-31); Chloride 105 mmol/L (98-107); Estimated GFR 39; Globulin 1.8 g/dL (2.4-3.5); Glucose 140 mg/dL (83-110); Potassium 3.7 mmol/L (3.5-5.1); Protein, Total 5.9 g/dL (5.8-8.1); Sodium 140 mmol/L (136-145)
[2023-09-14 11:36] LABS: Troponin I 0.018 ng/mL (< 0.028)
[2023-09-14] MEDS ORDERED: Ondansetron PF 4 MG/2 ML Vial IVP PRN (12:44)
[2023-09-14] MEDS ORDERED: HYDROcodone/Acetaminophen 5/325 mg Tablet PO PRN ×2 (12:44)
[2023-09-14] MEDS ORDERED: Acetaminophen 325 MG TAB PO PRN (12:44)
[2023-09-14] MEDS ORDERED: Ondansetron ODT 4 MG TAB PO PRN (12:44)
[2023-09-14] MEDS ORDERED: Dextrose 50% Abboject 50 ML SYRINGE SLOW IVP PRN (12:54)
[2023-09-14] MEDS ORDERED: HumaLOG 300 UNITS/3 ML VIAL SC PRN (12:54)
[2023-09-14] MEDS ORDERED: Glucagon 1 MG/ML KIT IM PRN (12:54)
[2023-09-14] MEDS ORDERED: Dextrose 5% in Water 1,000 ML IV PRN (12:54)
[2023-09-14] MEDS ORDERED: Pantoprazole 40 MG VIAL IVP SCH ×2 (13:00→17:15)
[2023-09-14] MEDS ORDERED: Meclizine HCl 25 MG TAB ONE (13:09)
[2023-09-14 15:34] VITALS: BMI 21.7
[2023-09-14] MEDS: Sodium Chloride 0.9% 1,000 ML IV SCH (17:08)
[2023-09-14] MEDS ORDERED: GoLYTELY 4,000 ml Bottle PO SCH (18:45)
[2023-09-14 18:56] LABS: Hematocrit 26.6 % (36.0-47.0); Hemoglobin 9.1 g/dL (12.0-16.0)
[2023-09-14] MEDS ORDERED: Famotidine 20 MG TAB PO SCH (21:00)
[2023-09-14] MEDS ORDERED: Atorvastatin Calcium 40 MG TAB PO SCH (21:00)
[2023-09-15] MEDS: Sodium Chloride 0.9% 1,000 ML IV SCH ×3 (00:22→09:48)
[2023-09-15 00:43] LABS: Hematocrit 25.8 % (36.0-47.0)
[2023-09-15 05:38] LABS: #Basophils 0.1 thou/uL (0.0-0.2); #Eosinphils 0.1 thou/uL (0.0-0.7); #Monocytes 0.5 thou/uL (0.11-0.59); %Eosinophils 1.6 % (0.0-10.0); %Lymphocytes 26.1 % (21.0-51.0); %Monocytes 10.9 % (0.0-10.0); %Neutrophils 60.2 % (42.0-75.0); Hematocrit 26.3 % (36.0-47.0); Hemoglobin 8.9 g/dL (12.0-16.0); Mean Corpuscular HGB CONC 33.8 g/dL (32.0-36.0); Mean Corpuscular Hemoglobin 29.6 pg (27.0-31.0); Mean Corpuscular Volume 87.4 fl (78.0-98.0); Mean Platelet Volume 11.5 fL (7.4-10.4); Platelet Count 136 10x3/uL (130-400); RBC Distribution Width 14.4 % (11.5-14.5); Red Blood Cell (RBC) Count 3.01 mill/uL (4.20-5.40); White Blood Cell (WBC) Count 4.9 10x3/uL (4.8-10.8)
[2023-09-15 06:03] LABS: ALT (SGPT) 17 U/L (8-55); AST (SGOT) 26 U/L (5-34); Albumin 3.6 g/dL (3.4-4.8); Alkaline Phosphatase 38 U/L (40-110); Anion Gap 11 mmol/L (10-20); BUN (Urea Nitrogen) 25 mg/dL (9.8-20.1); Bilirubin, Total 0.6 mg/dL (0.2-1.2); Calc. Creatinine Clearance 42 mL/min (70-130); Calcium 8.1 mg/dL (7.8-10.44); Carbon Dioxide 25 mmol/L (23-31); Chloride 110 mmol/L (98-107); Estimated GFR 63; Globulin 1.5 g/dL (2.4-3.5); Glucose 99 mg/dL (83-110); Potassium 3.6 mmol/L (3.5-5.1); Protein, Total 5.1 g/dL (5.8-8.1); Sodium 142 mmol/L (136-145)
[2023-09-15 07:18] VITALS: BP 160/80; TEMP 98.9
[2023-09-15] MEDS ORDERED: Pantoprazole 40 MG VIAL IVP SCH (09:00)
[2023-09-15] MEDS ORDERED: Venlafaxine XR 37.5 MG CAP PO SCH (09:00)
[2023-09-15] MEDS ORDERED: PROPOFOL 200 MG/20 ML VIAL ONE (11:04)
[2023-09-17] MEDS ORDERED: FLU VACC QS2023(65UP)/MF59C/PF 60 MCG/0.5 ML SYRINGE IM ONE (09:00)
== END 2023-09-15 15:56 | disposition home or self-care (01) ==
LOC: ERS 10:10 → SUATTDRO 10:10 → T4-B 14:23
PROVIDERS: ADMIT Family Medicine; ATTEND Internal Medicine
PROC: 0W3P8ZZ Control Bleeding in Gastrointestinal Tract, Via Natural or Artificial Opening Endoscopic (ICD-10-PCS; principal; 2023-09-14)
DX: K92.2 Gastrointestinal hemorrhage, unspecified (principal); N17.9 Acute kidney failure, unspecified; I12.9 Hypertensive chronic kidney disease with stage 1 through stage 4 chronic kidney disease, or unspecified chronic kidney disease; N18.2 Chronic kidney disease, stage 2 (mild); D50.0 Iron deficiency anemia secondary to blood loss (chronic); K64.8 Other hemorrhoids; K64.4 Residual hemorrhoidal skin tags; K63.5 Polyp of colon; K57.30 Diverticulosis of large intestine without perforation or abscess without bleeding; K63.3 Ulcer of intestine; E11.9 Type 2 diabetes mellitus without complications; M19.90 Unspecified osteoarthritis, unspecified site; Z90.89 Acquired absence of other organs; Z88.1 Allergy status to other antibiotic agents; Z91.011 Allergy to milk products; Z79.4 Long term (current) use of insulin; Z79.899 Other long term (current) drug therapy
CPT/HCPCS: 36430; 45382; 71045; 80053 ×2; 82962 ×2; 83880; 84484; 85014 ×2; 85018; 85025 ×2; 86850; 86900; 86901; 86920; 93005; 96374; 99285; G0378 ×3; P9016; 36415; 36416; C9113; J2704; J7050

== ENCOUNTER 2024-09-23 08:59 | Outpatient (CLI) | payer MEDICARE ==
[2024-09-23] MEDS ORDERED: Iopamidol 370 76% 100 ML VIAL ONE (09:42)
[2024-09-23] MEDS ORDERED: Magnevist 469MG/ML 20 ML VIAL ONE (10:03)
== END 2024-09-23 09:00 | disposition home or self-care (01) ==
LOC: CT 08:59
DX: M79.9 Soft tissue disorder, unspecified (principal); R93.7 Abnormal findings on diagnostic imaging of other parts of musculoskeletal system; M47.812 Spondylosis without myelopathy or radiculopathy, cervical region; J39.2 Other diseases of pharynx; L04.0 Acute lymphadenitis of face, head and neck
CPT/HCPCS: 70492; 72156

== ENCOUNTER 2024-12-26 14:47 | Outpatient (CLI) | payer MEDICARE, OTHER | END 2024-12-26 14:48 | disposition home or self-care (01) | LOC: BICMAMMO 14:47 | PROVIDERS: ATTEND Family Medicine | DX: Z12.31 Encounter for screening mammogram for malignant neoplasm of breast (principal); Z80.3 Family history of malignant neoplasm of breast | CPT/HCPCS: 77063; 77067 ==

== ENCOUNTER 2025-01-20 09:47 | Outpatient (CLI) | payer OTHER ==
[2025-01-20 11:14] LABS: #Basophils 0.05 10x3/uL (0.0-0.2); %Basophils 0.8 % (0.0-1.0); %Eosinophils 1.3 % (0.0-10.0); %Monocytes 10.1 % (0.0-10.0); %Neutrophils 65.6 % (42.0-75.0); Hematocrit 39.1 % (36.0-47.0); Hemoglobin 12.7 g/dL (12.0-16.0); Mean Corpuscular HGB CONC 32.5 g/dL (32.0-36.0); Mean Corpuscular Hemoglobin 27.5 pg (27.0-31.0); Mean Corpuscular Volume 84.8 fL (78.0-98.0); Mean Platelet Volume 11.3 fL (7.4-10.4); Platelet Count 210 10x3/uL (130-400); RBC Distribution Width 14.6 % (11.5-14.5); Red Blood Cell (RBC) Count 4.61 mill/uL (4.20-5.40)
[2025-01-20 11:30] LABS: Anion Gap 13 mmol/L (10-20); BUN (Urea Nitrogen) 32 mg/dL (9.8-20.1); Calc. Creatinine Clearance 0 mL/min (70-130); Calcium 9.9 mg/dL (7.8-10.44); Carbon Dioxide 29 mmol/L (23-31); Chloride 103 mmol/L (98-107); Estimated GFR 56; Glucose 96 mg/dL (83-110); Potassium 3.9 mmol/L (3.5-5.1); Sodium 141 mmol/L (136-145)
== END 2025-01-20 09:48 | disposition home or self-care (01) ==
LOC: LABBT 09:47
PROVIDERS: ATTEND Orthopaedic Surgery Hand Surgery
DX: Z01.818 Encounter for other preprocedural examination (principal); M65.332 Trigger finger, left middle finger
CPT/HCPCS: 80048; 85025; 93005; 93010